=== PATIENT | male | born 1965 | race Hispanic/Latino ===

== ENCOUNTER 2018-01-23 18:24 | Emergency (ER) | payer SELFPAY ==
[2018-01-23 18:56] LABS: BASOPHILS % (AUTO) 0.3 % (0.0-5.0); HEMATOCRIT 49.5 % (42-54); LYMPHOCYTES % (AUTO) 8.7 % (21.0-51.0); MEAN CORPUSCULAR HGB CONC 33.9 g/dL (32.0-36.0); MEAN CORPUSCULAR VOLUME 88.5 fL (79-99); MONOCYTES % (AUTO) 3.4 % (3.0-13.0); NEUTROPHILS % (AUTO) 87.6 % (40.0-77.0); PLATELET COUNT (AUTO) 287 K/uL (130-400); RED BLOOD CELL COUNT(AUTO) 5.59 MIL/uL (4.50-6.20); RED CELL DISTRIBUTION WIDTH 13.6 % (11.0-15.5); WHITE BLOOD COUNT (AUTO) 11.5 K/uL (4.8-10.8)
[2018-01-23] MEDS ORDERED: ONDANSETRON HCL 4 MG/2 ML VIAL ONE (18:58)
[2018-01-23 19:09] LABS: CREATININE 0.8 mg/dL (0.5-1.5); POTASSIUM 4.6 mmol/L (3.5-5.1)
[2018-01-23 19:13] LABS: ALBUMIN 4.2 g/dL (3.5-5.0); BILIRUBIN,TOTAL 0.6 mg/dL (0.2-1.0); TOTAL PROTEIN, SERUM 8.7 g/dL (6.0-8.3)
[2018-01-23] MEDS ORDERED: DiphenhydrAMINE HCL 50 MG/ML VIAL ONE (19:48)
[2018-01-23] MEDS ORDERED: MECLIZINE HCL 25 MG TABLET ONE (19:48)
[2018-01-23] MEDS ORDERED: SODIUM CHLORIDE 0.9% 1000ML 1,000 ML IV ONE (20:19)
== END 2018-01-23 21:16 | disposition home or self-care (01) ==
LOC: EDH 18:24
DX: H81.10 Benign paroxysmal vertigo, unspecified ear (principal); H81.399 Other peripheral vertigo, unspecified ear; E86.9 Volume depletion, unspecified; E11.9 Type 2 diabetes mellitus without complications; I10 Essential (primary) hypertension; Z88.8 Allergy status to other drugs, medicaments and biological substances; Z79.84 Long term (current) use of oral hypoglycemic drugs; Z72.0 Tobacco use
CPT/HCPCS: 36415; 80053; 83690; 85025; 96361; 96374; 96375; 99283; J1200; J2405; J7030

== ENCOUNTER 2022-01-27 06:59 | Inpatient (IN) | payer OTHER ==
[~2022-01-27] VITALS: Ht 175.3 cm; Wt 102.1 kg
[2022-01-27 07:29] LABS: BASOPHILS % (AUTO) 0.6 % (0.0-5.0); HEMATOCRIT 40.8 % (42-54); LYMPHOCYTES % (AUTO) 11.1 % (21.0-51.0); MEAN CORPUSCULAR HEMOGLOBIN 28.4 pg (27.0-33.0); MEAN CORPUSCULAR HGB CONC 33.1 g/dL (32.0-36.0); MEAN CORPUSCULAR VOLUME 85.7 fL (79-99); MONOCYTES % (AUTO) 5.9 % (3.0-13.0); NEUTROPHILS % (AUTO) 81.1 % (40.0-77.0); PLATELET COUNT (AUTO) 299 K/uL (130-400); RED BLOOD CELL COUNT(AUTO) 4.76 MIL/uL (4.50-6.20); RED CELL DISTRIBUTION WIDTH 13.5 % (11.0-15.5); WHITE BLOOD COUNT (AUTO) 7.9 K/uL (4.8-10.8)
[2022-01-27 07:50] LABS: CREATININE 1.1 mg/dL (0.5-1.5); POTASSIUM 4.5 mmol/L (3.5-5.1); TOTAL PROTEIN, SERUM 6.9 g/dL (6.0-8.3)
[2022-01-27 07:55] LABS: APPEARANCE,URINE CLEAR (CLEAR); BILIRUBIN,URINE NEGATIVE (NEGATIVE); COLOR,URINE YELLOW (YELLOW); GLUCOSE, URINE (UA) >=1000 mg/dL (NEGATIVE); KETONES,URINE 5 mg/dL (NEGATIVE); LEUKOCYTE ESTERASE ,URINE NEGATIVE Leu/uL (NEGATIVE); NITRATE,URINE NEGATIVE (NEGATIVE); OCCULT BLOOD,URINE MODERATE (NEGATIVE); PROTEIN,URINE 100 mg/dL (NEGATIVE); UROBILINOGEN,URINE 0.2 mg/dL (0.2-1.0)
[2022-01-27 07:58] LABS: BACTERIA,URINE Rare /HPF (None Seen); SQUAMOUS EPITHELIAL CELL,UR Few /HPF (0-2); WBC,URINE None Seen /HPF (0-1)
[2022-01-27] MEDS ORDERED: NITROGLYCERIN 1GM OINT 1 INCH/1GM TD ONE (09:00)
[2022-01-27] MEDS ORDERED: FUROSEMIDE 20MG VIAL IV ONE ×2 (09:00→10:00)
[2022-01-27] MEDS ORDERED: INSULIN HUMULIN R 100 UNIT/ML 3ML IV ONE (09:00)
[2022-01-27 09:26] LABS: AMPHET/METH SCREEN,URINE NEGATIVE (NEGATIVE); BARBITURATE SCREEN, URINE NEGATIVE (NEGATIVE); BENZODIAZEPINES SCREEN,URINE NEGATIVE (NEGATIVE); CANNABINOID SCREEN,URINE POSITIVE (NEGATIVE); COCAINE SCREEN,URINE NEGATIVE (NEGATIVE); OPIATE SCREEN,URINE NEGATIVE (NEGATIVE); PHENCYCLIDINE SCREEN,URINE NEGATIVE (NEGATIVE)
[2022-01-27] MEDS ORDERED: Vitamin B Complex/Vit C/Folic Acid PO SCH (10:00)
[2022-01-27] MEDS: AMLODIPINE 5 MG TAB PO SCH (10:26)
[2022-01-27] MEDS: ASPIRIN 81 MG EC TAB PO SCH (10:26)
[2022-01-27] MEDS: FOLIC ACID 1 MG TABLET PO SCH (10:26)
[2022-01-27] MEDS: PANTOPRAZOLE 40 MG TAB DR PO SCH (10:26)
[2022-01-27] MEDS ORDERED: IPRATROPIUM/ALBUTEROL SULFATE 3 ML SOLUTION IH PRN (10:30)
[2022-01-27] MEDS ORDERED: HYDRALAZINE 20MG/ML VIAL IV PRN (10:30)
[2022-01-27] MEDS ORDERED: INSULIN GLARGINE 100 UNITS/ML 10 ML VIAL SQ ONE (10:30)
[2022-01-27] MEDS ORDERED: ONDANSETRON 4MG INJ IVP PRN (10:30)
[2022-01-27] MEDS ORDERED: NITROGLYCERIN 0.4 MG SL TAB SL PRN (10:30)
[2022-01-27 10:38] LABS: HEMOGLOBIN A1C 12.3 % (4.0-6.0)
[2022-01-27 10:48] LABS: CRP QUANTITATIVE 9.7 mg/L (0.00-9.0); THYROID STIMULATING HORMONE 2.56 uIU/mL (0.36-3.74)
[2022-01-27] MEDS ORDERED: SODIUM CHLORIDE 3% FOR INHALATION 4 ML/AMP VIAL.NEB IH ONE (10:55)
[2022-01-27] MEDS: BUDESONIDE 0.5 MG/2 ML INH IH SCH ×2 (10:57→18:50)
[2022-01-27 11:11] LABS: ABG BASE EXCESS 2.3 mmol/L (-2.0-3.0); ABG HCO3 26.8 mmol/L (21.0-28.0); ABG OXYGEN SATURATION 95.3 % (95.0-99.0); ABG PCO2 41 mmHg (35-48)
[2022-01-27] MEDS: HYDRALAZINE 25MG TABLET PO SCH ×2 (12:18→21:27)
[2022-01-27] MEDS: INSULIN HUMULIN R 100 UNIT/ML 3ML SQ SCH ×3 (12:18→19:47)
[2022-01-27 14:51] LABS: CREATININE 0.9 mg/dL (0.5-1.5); MAGNESIUM 1.8 mg/dL (1.80-2.40); POTASSIUM 3.7 mmol/L (3.5-5.1)
[2022-01-27] MEDS: FUROSEMIDE 40MG VIAL IV SCH (16:18)
[2022-01-27] MEDS: LISINOPRIL 20 MG TABLET PO SCH (16:18)
[2022-01-27] MEDS ORDERED: KCL 20 MEQ ERTAB PO ONE (19:00)
[2022-01-27] MEDS ORDERED: MAGNESIUM 2GM PREMIX 50ML 50 ML IV SCH (19:00)
[2022-01-27] MEDS: INSULIN GLARGINE 100 UNITS/ML 10 ML VIAL SQ SCH (21:27)
[2022-01-28] MEDS: FUROSEMIDE 40MG VIAL IV SCH ×4 (01:04→23:44)
[2022-01-28] MEDS: BUDESONIDE 0.5 MG/2 ML INH IH SCH ×2 (06:00→18:52)
[2022-01-28] MEDS: INSULIN HUMULIN R 100 UNIT/ML 3ML SQ SCH ×4 (07:30→19:55)
[2022-01-28 07:55] LABS: EOSINOPHILS % (AUTO) 4.3 % (0.0-8.0); HEMATOCRIT 35.9 % (42-54); LYMPHOCYTES % (AUTO) 25.2 % (21.0-51.0); MEAN CORPUSCULAR HEMOGLOBIN 28.5 pg (27.0-33.0); MEAN CORPUSCULAR HGB CONC 33.4 g/dL (32.0-36.0); MEAN CORPUSCULAR VOLUME 85.3 fL (79-99); MONOCYTES % (AUTO) 11.7 % (3.0-13.0); NEUTROPHILS % (AUTO) 57.6 % (40.0-77.0); PLATELET COUNT (AUTO) 301 K/uL (130-400); RED BLOOD CELL COUNT(AUTO) 4.21 MIL/uL (4.50-6.20); RED CELL DISTRIBUTION WIDTH 13.8 % (11.0-15.5); WHITE BLOOD COUNT (AUTO) 6.1 K/uL (4.8-10.8)
[2022-01-28 08:13] LABS: ALBUMIN 2.2 g/dL (3.5-5.0); CREATININE 0.9 mg/dL (0.5-1.5); MAGNESIUM 1.8 mg/dL (1.80-2.40); POTASSIUM 3.7 mmol/L (3.5-5.1); TOTAL PROTEIN, SERUM 5.8 g/dL (6.0-8.3)
[2022-01-28 08:36] LABS: B-TYPE NATRIURETIC PEPTIDE 382 pg/mL (0-100)
[2022-01-28] MEDS: Vitamin B Complex/Vit C/Folic Acid PO SCH (09:45)
[2022-01-28] MEDS: AMLODIPINE 5 MG TAB PO SCH (09:45)
[2022-01-28] MEDS: ASPIRIN 81 MG EC TAB PO SCH (09:45)
[2022-01-28] MEDS: LINAGLIPTIN 5 MG TABLET PO SCH (09:46)
[2022-01-28] MEDS: FOLIC ACID 1 MG TABLET PO SCH (09:46)
[2022-01-28] MEDS: LISINOPRIL 20 MG TABLET PO SCH (09:46)
[2022-01-28] MEDS: PANTOPRAZOLE 40 MG TAB DR PO SCH (09:46)
[2022-01-28] MEDS: HYDRALAZINE 25MG TABLET PO SCH ×2 (12:36→23:46)
[2022-01-28] MEDS ORDERED: INSULIN GLARGINE 100 UNITS/ML 10 ML VIAL SQ SCH (13:00)
[2022-01-28] MEDS: INSULIN GLARGINE 100 UNITS/ML 10 ML VIAL SQ SCH (20:35)
[2022-01-28 21:00] VITALS: BP 153/69
[2022-01-28] MEDS ORDERED: ATORVASTATIN 40 MG TABLET PO SCH (21:00)
[2022-01-29 00:16] VITALS: BP 163/79
[2022-01-29 04:43] VITALS: BP 141/69
[2022-01-29 04:54] LABS: POTASSIUM 3.5 mmol/L (3.5-5.1)
[2022-01-29] MEDS: INSULIN HUMULIN R 100 UNIT/ML 3ML SQ SCH ×3 (06:21→16:30)
[2022-01-29] MEDS: BUDESONIDE 0.5 MG/2 ML INH IH SCH (07:08)
[2022-01-29 08:00] VITALS: BP 151/69
[2022-01-29] MEDS: AMLODIPINE 5 MG TAB PO SCH (08:03)
[2022-01-29] MEDS: FUROSEMIDE 40MG VIAL IV SCH (08:03)
[2022-01-29] MEDS: PANTOPRAZOLE 40 MG TAB DR PO SCH (08:03)
[2022-01-29] MEDS: LINAGLIPTIN 5 MG TABLET PO SCH (08:03)
[2022-01-29] MEDS: Vitamin B Complex/Vit C/Folic Acid PO SCH (08:04)
[2022-01-29] MEDS: ASPIRIN 81 MG EC TAB PO SCH (08:04)
[2022-01-29] MEDS: LISINOPRIL 20 MG TABLET PO SCH (08:04)
[2022-01-29] MEDS: FOLIC ACID 1 MG TABLET PO SCH (08:07)
[2022-01-29 12:00] VITALS: BP 150/73
[2022-01-29] MEDS ORDERED: LISI20TA24 PO (12:00)
[2022-01-29] MEDS ORDERED: Folic Acid/Vitamin B Comp W-C PO (12:00)
[2022-01-29] MEDS ORDERED: AEC81 PO (12:00)
[2022-01-29] MEDS ORDERED: ALBU90AE2 IH (12:00)
[2022-01-29] MEDS ORDERED: INSLAN SQ (12:00)
[2022-01-29] MEDS ORDERED: FURO40TA7 PO (12:00)
[2022-01-29] MEDS ORDERED: PANT40TA PO (12:00)
[2022-01-29] MEDS ORDERED: Nitroglycerin 0.4MG Sl Tab SL (12:00)
[2022-01-29] MEDS ORDERED: HYDR25 PO (12:00)
[2022-01-29] MEDS ORDERED: ATOR40TA69 PO (12:00)
[2022-01-29] MEDS ORDERED: AMLO5TAB4 PO (12:00)
[2022-01-29] MEDS ORDERED: LINA5TAB PO (12:00)
[2022-01-29] MEDS: HYDRALAZINE 25MG TABLET PO SCH (12:13)
[2022-01-29 16:00] VITALS: BP 176/86
[2022-01-29] MEDS ORDERED: HYDROCHLOROTHIAZIDE 25 MG TABLET PO SCH (16:00)
[2022-01-29 16:49] VITALS: BP 162/76
[2022-01-30] MEDS ORDERED: HYDROCHLOROTHIAZIDE 25 MG TABLET PO SCH (09:00)
== END 2022-01-29 18:10 | disposition home or self-care (01) | DRG 291 ==
LOC: EDH 06:59 → EDHIP 07:00 → 4DH 01-28 21:00
PROVIDERS: ADMIT Internal Medicine; ATTEND Internal Medicine
DX: I11.0 Hypertensive heart disease with heart failure (principal); I50.33 Acute on chronic diastolic (congestive) heart failure; J96.01 Acute respiratory failure with hypoxia; I16.1 Hypertensive emergency; Z20.822 Contact with and (suspected) exposure to COVID-19; E78.5 Hyperlipidemia, unspecified; Z68.33 Body mass index [BMI] 33.0-33.9, adult; E11.65 Type 2 diabetes mellitus with hyperglycemia; E66.9 Obesity, unspecified; F17.200 Nicotine dependence, unspecified, uncomplicated; Z79.82 Long term (current) use of aspirin; Z79.899 Other long term (current) drug therapy; Z82.49 Family history of ischemic heart disease and other diseases of the circulatory system; Z83.3 Family history of diabetes mellitus; Z87.11 Personal history of peptic ulcer disease
CPT/HCPCS: 36415; 36600; 71045; 76705; 80048; 80053; 80061; 80305; 81001; 82435; 82550; 82803; 82947; 82948; 83036; 83605; 83735; 83874; 83880; 84132; 84145; 84295; 84443; 84484; 85018; 85025; 85651; 86140; 87071; 87205; 87635; 87804; 93005; 93306; 93356; 93970; 94640; 94664; 99291; C9803; G0378; J0360; J1815; J1940